=== PATIENT | male | born 1975 | race Two or more races ===

== ENCOUNTER 2025-02-14 08:45 | Day surgery (SDC) | payer OTHER, SELFPAY ==
[2025-02-14] VITALS (16 sets, daily range): BP systolic 120–143; BP diastolic 70–89; PULSE 58–92; RESP 16; TEMP 36.7–37.2; O2SAT 94–97; BMI 33.7
[2025-02-14] MEDS: SODIUM CHLORIDE 0.9 % (FLUSH) 10 ML SYRINGE IVF (09:30)
[2025-02-14] MEDS: LACTATED RINGERS 1000 ML 1,000 ML 100 ML IV (09:30)
--- NOTE | 2025-02-14 10:33 | SUR.OPER ---
PATIENT QUESTIONS ANSWERED SATISFACTORILY PREOPERATIVELY. PATIENT BROUGHT TO OR #1 PER CART. Patient positioned supine on OR #1 bed. The perioperative team tucked patient arms bilaterally at the patient sides in a neutral position. Final approval of positioning by surgeon.
--- NOTE | 2025-02-14 10:41 | W.PM.H&PU ---
History & Physical Update History & Physical Update H&P Reviewed and patient assessed: No changes noted
--- NOTE | 2025-02-14 10:42 | P.GSOP_ITS ---
Operative Note Date of procedure: 02/14/25 Pre-op diagnosis: Left inguinal hernia Post-op diagnosis: Same Type of Procedure: Laparoscopic repair of a left inguinal hernia Indications: The patient is a 49-year-old male with a left inguinal hernia which has become increasingly symptomatic for him. He was seen on CT to have colon contained w ithin the hernia. I recommended repair and after discussion of options, he agreed to proceed. Procedure Description: After discussing the risks and benefits of the procedure, the patient signed informed consent.? The operative site was marked and the patient was brought to the operating room and placed on the operating table in supine position.? Care was taken to pad the patient's pressure points.?? The patient was then intubated by anesthesia.??His arms were then tucked at his sides. The operative site was then prepped and draped in the usual sterile fashion.? A time-out was then performed. A curvilinear incision was made below the umbilicus. Dissection was carried down to subcutaneous tissue until the anterior rectus fascia was encountered. This was incised off the midline on the left. The rectus muscle fibers were then retracted exposing the posterior fascia. A port with a dissecting balloon was then introduced into the pre-preperitoneal space. This was inflated under direct vision. The balloon was deflated, removed, and a 10 mm working port was placed. The space was insufflated and a 10 mm 30-degree scope was then advanced into the space. Two 5 mm ports were placed in the midline under direct vision. Dissection began on the left side. The patient had a large amount of preperitoneal fat which bled quite easily. This was controlled with cautery. I was able to dissect out Navi's ligament and the pubic bone medially. No direct hernia was noted, however the patient did have an indirect hernia. Dissection was carried out laterally before reducing the hernia. First a large cord lipoma was reduced, followed by the hernia sac. The peritoneum was freed from the cord structures using blunt dissection. The peritoneum did tear during the dissection. The preperitoneal fat and peritoneum were dissected free from the pelvic sidewall to permit space for the mesh to lay flat. Once this was done, a piece of large Bard 3DMax mesh for the left side was placed in the abdomen and positioned with the marker pointed medially. A Tacker was used to attach the mesh medially at Navi's ligament. At this point, the area was examined for hemostasis which appeared adequate. The peritoneal defect was closed with clips. Juan was then placed into the space to promote ongoing hemostasis because of the oozing from the preperitoneal fat that had occurred during the procedure. Once this was done, the mesh was held flat and the preperitoneal fat, hernia sac and cord lipoma were placed on top of the mesh. The preperi toneal space was then desufflated under direct vision to ensure that the mesh stayed flat. 10 mL of 0.5% Marcaine were instilled into the preperitoneal space through a port. The ports were removed. The fascia from the infraumbilical port was closed with 0 Vicryl. The skin incisions were closed with absorbable subcuticular suture. Sterile dressings were then applied. The scrotum was examined to ensure that both testicles were down. Instrument sponge and needle counts were correct at the end of the case. ? The patient was then woken and transported to the recovery area in stable condition. ? The patient tolerated the procedure well. Findings: Large left indirect inguinal hernia with cord lipoma. Anesthesia: GETA Surgeon: Hillary Guevara MD Estimated blood loss (mL): 10 Condition: stable Disposition: PACU
[2025-02-14] MEDS: BUPIVACAINE 0.25% 30 ML INJECTION (11:14)
--- NOTE | 2025-02-14 12:20 | P.ANES_ITS ---
Anesthesia Charges Start Date/Time Anesthesia Start Date: 02/14/25 Anesthesia Start Time: 10:39 Stop Date/Time Anesthesia Stop Date: 02/14/25 Anesthesia Stop Time: 12:20 Coding CPT Codes CPT Codes: ANESTH REPAIR OF HERNIA - 34723 ([id number]) P3 - PATIENT W/SEVERE SYS DISEASE, QK - NAIL STICKER 2-4 CNCRNT ANES PROC, QX - CASHIERS SUPERVISOR SVC W/ MD MED DIRECTION
--- NOTE | 2025-02-14 12:20 | W.ANESCHARGE ---
Anesthesia Charges Start Date/Time Anesthesia Start Date: 02/14/25 Anesthesia Start Time: 10:39 Stop Date/Time Anesthesia Stop Date: 02/14/25 Anesthesia Stop Time: 12:20 Coding CPT Codes CPT Codes: ANESTH REPAIR OF HERNIA - 75803 ([id number]) P3 - PATIENT W/SEVERE SYS DISEASE, QK - SOLDERER ASSEMBLER 2-4 CNCRNT ANES PROC, QX - ENVIRONMENTAL PROGRAM MANAGER SVC W/ MD MED DIRECTION
--- NOTE | 2025-02-14 12:47 | P.ANES_ITS ---
Anesthesia Charges Start Date/Time Anesthesia Start Date: 02/14/25 Anesthesia Start Time: 10:39 Stop Date/Time Anesthesia Stop Date: 02/14/25 Anesthesia Stop Time: 12:20 Coding CPT Codes CPT Codes: ANESTH SURG LOWER ABDOMEN - 32201 ([id number]) P3 - PATIENT W/SEVERE SYS DISEASE, QK - BREWING TECHNICIAN 2-4 CNCRNT ANES PROC, QX - PRESCHOOL TEACHER'S ASSISTANT SVC W/ MD MED DIRECTION
--- NOTE | 2025-02-14 12:47 | W.ANESCHARGE ---
Anesthesia Charges Start Date/Time Anesthesia Start Date: 02/14/25 Anesthesia Start Time: 10:39 Stop Date/Time Anesthesia Stop Date: 02/14/25 Anesthesia Stop Time: 12:20 Coding CPT Codes CPT Codes: ANESTH SURG LOWER ABDOMEN - 46557 ([id number]) P3 - PATIENT W/SEVERE SYS DISEASE, QK - SHIP OFFICER 2-4 CNCRNT ANES PROC, QX - IT SYSTEMS ANALYST CONSULTANT SVC W/ MD MED DIRECTION
[2025-02-14] MEDS: HYDROCODONE-ACETAMIN 5-325 MG 1 TAB PO (13:42)
--- NOTE | 2025-02-14 15:05 | SUR.PHASEII ---
1445: Patient ready for discharge. Ride to arrive at 3 pm.
== END 2025-02-14 15:14 | disposition home or self-care (01) ==
PROVIDERS: PCP Physician Assistant Medical; Visit Provider Surgery
PROC: (CPT 49650; principal; 2025-02-14 10:00)
DX: K40.90 Unilateral inguinal hernia, without obstruction or gangrene, not specified as recurrent (principal); E11.9 Type 2 diabetes mellitus without complications
CPT/HCPCS: 49650; 00830; 00840; 82962; A9270; C1781; J0330; J0665; J0690; J1100; J1885; J2250; J2405; J2704; J3010; J3490; J7120